=== PATIENT | female | born 1965 | race African-American/Black ===

== ENCOUNTER 2021-11-11 02:04 | Emergency (ER) | payer MEDICAID ==
[~2021-11-11] VITALS: Ht 157.5 cm; Wt 65.0 kg
[2021-11-11] MEDS ORDERED: CEPHALEXIN 250MG CAPSULE PO ONE (02:30)
[2021-11-11 03:11] LABS: HEMATOCRIT 36.1 % (36.0-48.0); HEMOGLOBIN 12.2 g/dL (12.0-16.0); MEAN CORPUSCULAR HEMOGLOBIN 31.7 pg (28.0-32.0); MEAN CORPUSCULAR VOLUME 93.7 fL (81.0-99.0); PLATELET 228 x1000/uL (130-400); RED BLOOD CELL COUNT 3.86 mill/uL (4.2-5.4); RED CELL DISTRIBUTION WIDTH 13.5 % (11.6-14.6)
[2021-11-11 03:26] LABS: CHLORIDE 103 mEq/L (98-107)
[2021-11-11] MEDS ORDERED: CEPH500C2 MT (04:09)
[2021-11-11] MEDS ORDERED: ACETAMINOPHEN 500MG TABLET PO ONE (04:30)
[2021-11-11 04:51] VITALS: BP 119/73
== END 2021-11-11 04:53 | disposition home or self-care (01) ==
LOC: ER 02:04
DX: L03.116 Cellulitis of left lower limb (principal); Z20.822 Contact with and (suspected) exposure to COVID-19; Z59.00 Homelessness unspecified
CPT/HCPCS: 36415; 80053; 85027; 87426; 99283; C9803